=== PATIENT | female | born 1955 | race Caucasian/White ===

== ENCOUNTER 2018-12-21 02:52 | Emergency (ER) | payer BC ==
[~2018-12-21] VITALS: Ht 160 cm; Wt 68.6 kg
[2018-12-21 02:53] VITALS: BP 144/78
[2018-12-21] MEDS ORDERED: CELE20TA PO (02:57)
== END 2018-12-21 03:09 | disposition left against medical advice (07) ==
LOC: M ED 02:52
DX: Z53.21 Procedure and treatment not carried out due to patient leaving prior to being seen by health care provider (principal)